=== PATIENT | female | born 1995 | race Two or more races ===

== ENCOUNTER 2024-08-17 09:02 | Outpatient (CLI) | payer OTHER ==
[~2024-08-17 09:02] MED LIST: ACCUNEB0.63 MG/3 IH; ADVAIR 2501 DISK W/1 IH; ALBUTEROL2.5 MG/3 M IH; ALLEGRA ALLERGY60 MG PO; FLONASE16 GM NS; GILTUSS LIQUID237 M1 PO; PROAIR HFA8.5 GM IH; PROVENTIL HFA6.7 GM IH; PROVENTIL3 ML/2.5 M IH; SINGULAIR10 MG PO; SYNTHROID50 MCG; SYNTHROID50 MCG PO; SYNTHROID75 MCG PO; ZITHROMAX200 MG PO; ZYRTEC10 M3; ZYRTEC10 MG
== END 2024-08-17 09:05 | disposition home or self-care (01) ==
LOC: SONOGRAMA 09:02
PROVIDERS: ATTEND Pathology Anatomic Pathology & Clinical Pathology
DX: D34 Benign neoplasm of thyroid gland (principal); E06.3 Autoimmune thyroiditis; E04.1 Nontoxic single thyroid nodule